=== PATIENT | female | born 1995 | race African-American/Black ===

== ENCOUNTER 2018-10-08 12:53 | Emergency (ER) | payer SELFPAY ==
[~2018-10-08] VITALS: Ht 172.7 cm; Wt 65.9 kg
[2018-10-08 13:16] VITALS: TEMP 97.5
[2018-10-08 14:17] LABS: BASO # 0.1 (0.0-0.2); BASO % 0.7 % (0.0-2.0); EOS % 0.5 % (0-4.0); GRAN # 5.2 (1.4-6.5); GRAN % 58.6 % (42.2-75.2); HEMATOCRIT 38.5 % (35.0-45.0); HEMOGLOBIN 12.1 g/dl (12.0-15.0); LYMPH # 2.7 (1.2-3.4); LYMPH % 30.4 % (20.0-51.0); MEAN CELL VOLUME 88 fl (80.0-95.0); MEAN CORPUSCULAR HEMOGLOBIN 28 pg (26.0-32.0); MEAN CORPUSCULAR HGB CONC 31 g/dl (33.0-37.0); MEAN PLATELET VOLUME 9.5 fl (7.4-10.4); MONO # 0.9 (0.1-0.6); MONO % 9.6 % (1.7-9.3); PLATELET COUNT 233 K/mm3 (130-400); RED BLOOD COUNT 4.37 M/mm3 (4.10-5.30); REDCELL DISTRIBUTION WIDTH-CV 13.6 % (11.5-14.5)
[2018-10-08 14:21] LABS: ALBUMIN 4.5 gm/dL (3.5-5.0); BILIRUBIN,TOTAL 0.4 mg/dL (0.0-1.0); CALCIUM 9.3 mg/dL (8.4-10.2); CREATININE, serum 0.73 (0.52-1.25); POTASSIUM 3.8 mmol/L (3.4-5.0); TOTAL PROTEIN 8.4 gm/dL (6.4-8.2)
[2018-10-08 15:55] VITALS: BP 100/51; PULSE 90
== END 2018-10-08 15:55 | disposition home or self-care (01) ==
LOC: COL.ER 12:53
PROVIDERS: Physician Assistant
DX: N93.9 Abnormal uterine and vaginal bleeding, unspecified (principal)